=== PATIENT | female | born 1995 | race Caucasian/White ===

== ENCOUNTER 2017-01-26 18:12 | Emergency (ER) | payer OTHER ==
[2017-01-26 20:41] VITALS: BP 101/68
== END 2017-01-26 20:41 | disposition home or self-care (01) ==
LOC: ED 18:12
DX: S61.511A Laceration without foreign body of right wrist, initial encounter (principal); W25.XXXA Contact with sharp glass, initial encounter; Y93.G1 Activity, food preparation and clean up; Y92.89 Other specified places as the place of occurrence of the external cause; Y99.8 Other external cause status
CPT/HCPCS: 90715; J2001

== ENCOUNTER 2017-06-05 13:36 | Emergency (ER) | payer OTHER ==
[~2017-06-05] VITALS: Ht 154.9 cm; Wt 54.4 kg
[2017-06-05 15:04] VITALS: BP 116/66
== END 2017-06-05 15:04 | disposition home or self-care (01) ==
LOC: ED 13:36
DX: T65.891A Toxic effect of other specified substances, accidental (unintentional), initial encounter (principal); R10.13 Epigastric pain; Y92.89 Other specified places as the place of occurrence of the external cause

== ENCOUNTER 2019-03-14 05:23 | Emergency (ER) | payer MEDICAID ==
[~2019-03-14] VITALS: Ht 152.4 cm; Wt 61.4 kg
[2019-03-14 05:31] VITALS: Ht 152.4 cm; Wt 61.4 kg
[2019-03-14 07:58] VITALS: BP 110/64
== END 2019-03-14 07:59 | disposition home or self-care (01) ==
LOC: ED 05:23
DX: G44.209 Tension-type headache, unspecified, not intractable (principal); R42 Dizziness and giddiness
CPT/HCPCS: J1885; J2765; J7030; J8597

== ENCOUNTER 2019-05-12 12:32 | Emergency (ER) | payer MEDICAID ==
[~2019-05-12] VITALS: Ht 152.4 cm; Wt 64.0 kg
[2019-05-12 12:44] VITALS: Ht 152.4 cm; Wt 64.0 kg
[2019-05-12 14:46] LABS: BASOPHIL % 0.4 % (0-2); PLATELET COUNT 335 x10^3mcL (130-400); RED CELL DISTRIBUTION WIDTH 12.8 % (11.5-14.5)
[2019-05-12 14:48] LABS: CALCIUM 8.7 mg/dL (8.5-10.1); CARBON DIOXIDE 25.4 mmol/L (21-32); CHLORIDE SERUM 107 mmol/L (98-107); CREATININE SERUM 0.6 mg/dL (0.6-1.0); GFR1 > 60 mL/min; GLUCOSE SERUM 97 mg/dL (74-106); POTASSIUM SERUM 4.1 mmol/L (3.5-5.1); SODIUM SERUM 142 mmol/L (136-145)
[2019-05-12 14:51] LABS: ALBUMIN 3.5 g/dL (3.4-5.0); ALKALINE PHOSPHATASE 82 U/L (46-116); ALT/SGPT 39 U/L (14-59); AST/SGOT 15 U/L (15-37); BILIRUBIN TOTAL 0.17 mg/dL (0.20-1.00); LIPASE 115 IU/L (73-393); TOTAL PROTEIN, SERUM 6.8 g/dL (6.4-8.2)
[2019-05-12 15:30] VITALS: BP 122/67
== END 2019-05-12 15:30 | disposition home or self-care (01) ==
LOC: ED 12:32
PROVIDERS: Emergency Medicine
DX: K52.9 Noninfective gastroenteritis and colitis, unspecified (principal)
CPT/HCPCS: J2405; J7030

== ENCOUNTER 2020-09-25 08:45 | Emergency (ER) | payer OTHER, SELFPAY ==
[~2020-09-25] VITALS: Ht 152.4 cm; Wt 66.7 kg
[2020-09-25 08:47] VITALS: BP 113/76; Ht 152.4 cm; Wt 66.7 kg
== END 2020-09-25 10:23 | disposition home or self-care (01) ==
LOC: ED 08:45
DX: U07.1 COVID-19 (principal)
CPT/HCPCS: U0003